=== PATIENT | female | born 1975 | race Caucasian/White ===

== ENCOUNTER 2018-03-28 04:54 | Emergency (ER) | payer BC ==
[~2018-03-28] VITALS: Ht 160 cm; Wt 60.0 kg
[2018-03-28 06:13] LABS: APPEARANCE,URINE TURBID (CLEAR); BILIRUBIN,URINE NEGATIVE (NEGATIVE); GLUCOSE, URINE (UA) NEGATIVE (NEGATIVE); KETONES,URINE NEGATIVE (NEGATIVE); LEUKOCYTE ESTERASE ,URINE MODERATE (NEGATIVE); NITRATE,URINE NEGATIVE (NEGATIVE); OCCULT BLOOD,URINE NEGATIVE (NEGATIVE); PH,URINE 8.5 (5.0-8.0); PROTEIN,URINE NEGATIVE (NEGATIVE); UROBILINOGEN,URINE 0.2 mg/dL (<=1.0)
[2018-03-28 06:43] LABS: BACTERIA,URINE Many /HPF (None Seen); RBC,URINE 0-2 /HPF (0-2); SQUAMOUS EPITHELIAL CELL,UR Moderate /LPF (None Seen); TRIPLE PHOSPHATE CRYSTAL,UR Many /LPF (None Seen)
[2018-03-28 07:51] VITALS: BP 135/72
== END 2018-03-28 07:52 | disposition home or self-care (01) ==
LOC: EMS 04:56
DX: N39.0 Urinary tract infection, site not specified (principal); Z88.8 Allergy status to other drugs, medicaments and biological substances
CPT/HCPCS: 87086; 99284